=== PATIENT | female | born 1990 | race Caucasian/White ===

== ENCOUNTER → 2021-01-09 | Outpatient (CLI) | payer BC | LOC: US 13:15 | DX: C73 Malignant neoplasm of thyroid gland (principal); Z88.6 Allergy status to analgesic agent; Z88.8 Allergy status to other drugs, medicaments and biological substances; E89.0 Postprocedural hypothyroidism; R59.0 Localized enlarged lymph nodes | CPT/HCPCS: 76536 ==

== ENCOUNTER → 2021-03-03 | Outpatient (CLI) | payer OTHER | LOC: EROP 08:53 | DX: U07.1 COVID-19 (principal) | CPT/HCPCS: U0002 ==

== ENCOUNTER → 2021-11-06 | Outpatient (CLI) | payer BC | LOC: US 09:30 | DX: N92.0 Excessive and frequent menstruation with regular cycle (principal) | CPT/HCPCS: 76830 ==